=== PATIENT | female | born 1970 | race Caucasian/White ===

== ENCOUNTER 2018-03-06 11:09 | Inpatient (IN) | payer MEDICAID, MEDICARE ==
[2018-03-06] MEDS ORDERED: Sodium Chloride 0.9% 1,000 ML IV ONE (11:23)
--- NOTE | 2018-03-06 11:30 | ED Physician Chart ---
ED Chief Complaint/HPI - Patient Information Date Seen:: 03/06/18 Time Seen:: 11:15 Chief Complaint:: Dizziness History of Present Illness:: onset x 3 hours [employer] of weakness, dizziness, Left E/A, vertigo, N/V x 3; pt denies trauma, H/As, LOC, ALOC, AMS, visual or gait changes, tinnitus, hearing loss, S/T, neck pain, C/P, SOB, Abd. Pain, A/D/C, fever, chills, or urinary s/s Allergies:: Allergies Allergy/AdvReac Type Severity Reaction Status Date / Time cephalexin [From Keflex] Allergy Verified 03/06/18 11:18 hydromorphone [From Dilaudid] Allergy Verified 03/06/18 11:18 Vitals:: Vital Signs - 8 hr 03/06/18 11:18 Temp 97.9 F HR 71 RR 17 BP 152/90 O2 Sat % 98 Historian:: Patient, Family Member Review:: Nurse's Note Reviewed ED Review of Systems - Review of Systems General/Constitutional: No fever, No chills, No weight loss, Weakness, No diaphoresis, No edema, No loss of appetite Skin: No skin lesions, No rash, No bruising Head: No headache, No light-headedness Eyes: No loss of vision, No pain, No diplopia ENT: Earache, No nasal drainage, No sore throat, No tinnitus Neck: No neck pain, No swelling, No thyromegaly, No stiffness, No mass noted Cardio Vascular: No chest pain, No palpitations, No PND, No orthopnea, No edema Pulmonary: No SOB, No cough, No sputum, No wheezing GI: Nausea, Vomiting, Diarrhea, No pain, No melena, No hematochezia, No constipation, No hematemesis G/U: No dysuria, No frequency, No hematuria, No nacturia Designer Writer: No vaginal discharge, No abnormal vaginal bleed, No contraction Musculoskeletal: No bone or joint pain, No back pain, No muscle pain Endocrine: No polyuria, No polydipsia Psychiatric: No prior psych history, No depression, No anxiety, No suicidal ideation, No homicidal ideation, No auditory hallucination, No visual hallucination Hematopoietic: No bruising, No lymphadenopathy Allergic/Immuno: No urticaria, No angioedema Neurological: No syncope, No focal symptoms, Weakness, No paresthesia, No headache, No seizure, Dizziness, No confusion, Vertigo ED Past Medical History - Past Medical History Obtainable: Yes Past Medical History: No significant medical hx Family History: HTN Social History: Non Smoker, No Alcohol, No Drug Use, Single Surgical History: Hysterectomy Psychiatricy History: None Medication: Reviewed Family Medical History - Family Member Father Ethnicity: Non- Living Status: Hx Family Cancer: No Hx Family Coronary Artery Disease: No Hx Family Congestive Heart Failure: Yes Hx Family Hypertension: No Hx Family Stroke: No Hx Family Diabetes: No Hx Family Seizures: No Hx Family Dementia: No Hx Family AIDS: No Hx Family HIV: No Hx Family COPD: No Hx Family Hepatitis: No Hx Family Psychiatric Problems: No Hx Family Tuberculosis: No ED Physical Exam - Physical Examination General/Constitutional: Awake, Well-developed, well-nourished, Alert, No distress, GCS 15, Non-toxic appearing, Ambulatory Head: Atraumatic Eyes: Lids, conjuctiva normal, PERRL, EOMI Skin: Nl inspection, No rash, No skin lesions, No ecchymosis, Well hydrated, No lymphadenopathy ENMT: External ears, nose nl, Nasal exam nl, Lips, teeth, gums nl, Oropharynx nl , Tonsils nl Other ENMT comments:: Left Ear: TM: Dull and Injected; no FBs Neck: Nontender, Full ROM w/o pain, No JVD, No nuchal rigidity, No bruit, No mass, No stridor Respiratory: Nl effort/Exclusion, Clear to Auscultation, No Wheeze/Rhonchi/Rales Cardio Vascular: RRR, No murmur, gallop, rubs, NL S1 S2, Carotid/Femoral/Distal pulses equal bilaterally GI: No tenderness/rebounding/guarding, No organomegaly, No hernia, Normal BS's, Nondistended, No mass/bruits, No McBurney tenderness : No CVA tenderness Extremities: No tenderness or effusion, Full ROM, normal strength in all extremities, No edema, Normal digits & nails Neuro/Psych: Alert/oriented, DTR's symmetric, Normal sensory exam, Normal motor strength, Judgement/insight normal, Mood normal, Normal gait, No focal deficits Misc: Normal back, No paraspinal tenderness ED Labs/Radiology/EKG Results - Lab Results Comments:: WBC: 11.6; Na+: 128 - Radiology Results Comments:: NAD - EKG Interpretations EKG Time:: 11:27 Rate & Rhythm: 73; NSR Comments:: non-specific st-t changes ED Septic Shock - . Is Septic Shock (SBP<90, OR Lactate>4 mmol\L) present?: No - <6hrs of presentation: Vital Signs: Vital Signs - 8 hr 03/06/18 11:18 Temp 97.9 F HR 71 RR 17 BP 152/90 O2 Sat % 98 ED Reassessment (Disposition) - Reassessment Reassessment Condition:: Improved - Diagnosis Diagnosis:: Dx: Left Otitis Media; Weakness; Dizziness; Vertigo; N/V/D; AGE; Dehydration; Leukocytosis; Hyponatremia - Aftercare/Follow up Instructions Aftercare/Follow-Up Instructions:: Counseled pt regarding lab results/diagnosis & need follow up, Counseled pt & family regarding lab results/diagnosis & need follow up - Patient Disposition Discharge/Transfer:: Acute Care w/in this hosp Accepting Physician:: Dr. Mckenna Time Called:: 1300 Time Responded:: 13:00 Admitted to:: Telemetry Spoke to:: Dr. Mckenna Admitting Medical Physician:: Dr. Mckenna Condition at Disposition:: Stable, Improved
[2018-03-06 11:43] LABS: % BASOPHILS 1.5 % (0.0-2.0); % EOSINOPHILS 0.2 % (0.0-5.0); % LYMPHOCYTES 8.5 % (20.0-50.0); % MONOCYTES 1.1 % (2.0-10.0); % NEUTROPHILS 88.7 % (40.0-80.0); BASOPHILE ABSOLUTE 0.2 Th/cumm (0-0.2); HEMATOCRIT 42.5 % (41.0-60); HEMOGLOBIN 14.4 gm/dL (12-16); MEAN CELL VOLUME 92.8 fl (81-100); MEAN CORPUSCULAR HEMOGLOBIN 31.4 pg (27.0-31.0); MEAN CORPUSCULAR HGB CONC 33.9 pg (28.0-36.0); MEAN PLATELET VOLUME 7.3 fl; MONOCYTE ABSOLUTE 0.1 Th/cmm (0.3-1.0); NEUTROPHILE ABSOLUTE 10.3 Th/cmm (1.8-8.0); PLATELET COUNT 339 Th/cmm (150-400); RED BLOOD COUNT 4.58 Mil/cmm (3.80-5.10); RED CELL DISTRIBUTION WIDTH 12.5 % (11.5-20.0); WHITE BLOOD COUNT 11.6 Th/cmm (4.8-10.8)
[2018-03-06 12:00] LABS: INR 0.89 (0.5-1.4); PROTHROMBIN TIME (TEST) 9.1 SECONDS (9.5-11.5)
[2018-03-06 12:01] LABS: ALB/GLOB RATIO 1.7 (1.0-1.8); ALKALINE PHOSPHATASE 69 U/L (34-104); ANION GAP 12.8 (7.0-16.0); BILIRUBIN,TOTAL 0.6 mg/dL (0.3-1.0); BUN - UREA NITROGEN 12 mg/dL (7-25); CALCIUM SERUM 9.6 mg/dL (8.6-10.3); CARBON DIOXIDE 20.8 mEq/L (21.0-31.0); CHLORIDE 98 mEq/L (98-107); CHOLESTEROL 229 mg/dL (<200); CREATININE - SERUM 0.5 mg/dL (0.6-1.2); CREATININE KINASE 56 U/L (30-223); GFR AFRICAN-AMERICAN > 60.0 ml/min (>90); GFR NON AFRICAN-AMERICAN > 60.0 ml/min; GLUCOSE 113 mg/dL (70-105); HDL -HIGH DENSITY LIPOPROTEIN 53 mg/dL (23-92); POTASSIUM SERUM 3.6 mEq/L (3.5-5.1); SGOT 21 U/L (13-39); SGPT/ALT 39 U/L (7-52); SODIUM SERUM 128 mEq/L (136-145); TRIGLYCERIDES 87 mg/dL (<150)
[2018-03-06 12:02] LABS: AMYLASE SERUM 33 U/L (29-103); LIPASE 30 U/L (11-82)
--- NOTE | 2018-03-06 14:56 | Diagnostic Imaging Report ---
Head CT without intravenous contrast Indication: Trauma, nausea and vomiting Comparison: None Technique: Axial images were obtained from the vertex to the skull base without IV contrast. Coronal reconstructions were made. Total DLP: 721, [id number] FINDINGS: Images of the brain obtained without contrast demonstrate no acute hemorrhage. No mass lesions identified. The ventricles and basal cisterns are patent. The ko-white matter differentiation is preserved. There is no mass effect or midline shift. No skull fractures identified. There is almost complete opacification of left sphenoid sinus with areas of high density. IMPRESSION:. No acute intracranial abnormality. Left sphenoid sinusitis with almost complete opacification areas of high density which may be due to secretions or possibly tiny amount of hemosinus. Please correlate with clinical findings.
[2018-03-06] MEDS ORDERED: [UNRECOGNIZED DRUG - OTHER] OT SCH (20:40)
[2018-03-07 01:27] VITALS: BP 128/81
[2018-03-07 05:13] LABS: % BASOPHILS 0.5 % (0.0-2.0); % EOSINOPHILS 1.2 % (0.0-5.0); % MONOCYTES 6.7 % (2.0-10.0); % NEUTROPHILS 68.6 % (40.0-80.0); EOSINOPHILE ABSOLUTE 0.1 Th/cmm (0.1-0.4); HEMATOCRIT 39.4 % (41.0-60); HEMOGLOBIN 13.5 gm/dL (12-16); MEAN CELL VOLUME 92.8 fl (81-100); MEAN CORPUSCULAR HEMOGLOBIN 31.8 pg (27.0-31.0); MEAN CORPUSCULAR HGB CONC 34.3 pg (28.0-36.0); MEAN PLATELET VOLUME 7.4 fl; MONOCYTE ABSOLUTE 0.6 Th/cmm (0.3-1.0); NEUTROPHILE ABSOLUTE 5.8 Th/cmm (1.8-8.0); PLATELET COUNT 303 Th/cmm (150-400); RED BLOOD COUNT 4.25 Mil/cmm (3.80-5.10); RED CELL DISTRIBUTION WIDTH 12.6 % (11.5-20.0)
[2018-03-07 05:22] LABS: WHITE BLOOD COUNT 8.5 Th/cmm (4.8-10.8)
[2018-03-07 05:26] LABS: ALB/GLOB RATIO 1.6 (1.0-1.8); ALKALINE PHOSPHATASE 64 U/L (34-104); ANION GAP 10.1 (7.0-16.0); BILIRUBIN,TOTAL 0.4 mg/dL (0.3-1.0); BUN - UREA NITROGEN 12 mg/dL (7-25); CALCIUM SERUM 8.9 mg/dL (8.6-10.3); CARBON DIOXIDE 23.6 mEq/L (21.0-31.0); CHLORIDE 106 mEq/L (98-107); CHOLESTEROL 194 mg/dL (<200); CREATININE - SERUM 0.6 mg/dL (0.6-1.2); GFR AFRICAN-AMERICAN > 60.0 ml/min (>90); GFR NON AFRICAN-AMERICAN > 60.0 ml/min; GLUCOSE 107 mg/dL (70-105); HDL -HIGH DENSITY LIPOPROTEIN 42 mg/dL (23-92); POTASSIUM SERUM 3.7 mEq/L (3.5-5.1); SGOT 15 U/L (13-39); SGPT/ALT 31 U/L (7-52); SODIUM SERUM 136 mEq/L (136-145); TOTAL PROTEIN,SERUM 6.5 gm/dL (6.0-8.3); TRIGLYCERIDES 117 mg/dL (<150)
[2018-03-07] MEDS ORDERED: Aspirin 81mg Chewable Tab PO SCH (09:00)
[2018-03-07] MEDS ORDERED: Levofloxacin 500mg/100mL 500 MG/100 ML BAG IV SCH (10:00)
[2018-03-07] MEDS ORDERED: Cortisporin Otic Soln 10mL Bottle LEFT EAR SCH (12:00)
--- NOTE | 2018-03-07 12:15 | History & Physical ---
ADMIT DATE: 03/06/2018 CHIEF COMPLAINT: Dizziness and left ear pain. HISTORY OF PRESENT ILLNESS: This is a 47-year-old lady with no major medical problems except for seasonal allergies, who was in her usual state of health until yesterday morning when she woke up with severe left ear pain, dizziness associated with a couple episodes of nausea and vomiting. She apparently was camping on the weekend and while over there started experiencing some right-sided teary eye and apparently took loratadine with mild improvement. The next day, that's when she felt the dizziness, also headaches, mostly frontal and 2 episodes of nausea, vomiting as noted above-her symptoms got worse while at work. She does as mentioned above have history of seasonal allergies, but has never experienced vertigo. She presented to the Emergency Room, where pertinent findings include a white count of 11.6 and sodium of 128. Also, per ER staff, she did have swelling, pain and redness on her right ear. The patient has been admitted to the medical floor for further management and care. Since admission, she reports improvement of her symptoms, no longer feeling dizzy and her ear pain has improved. Her white count also has gone down to 8.5. PAST MEDICAL HISTORY: As noted above. PAST SURGICAL HISTORY: She had a some years ago. FAMILY HISTORY: Her father in his 50 secondary to hypertensive heart disease. SOCIAL HISTORY: No tobacco. Social alcohol. No illicit drug usage. ALLERGIES: ALLERGIC TO KEFLEX AND HYDROMORPHONE. OUTPATIENT MEDICATIONS: Loratadine as needed. REVIEW OF SYSTEMS: CONSTITUTIONAL: She denies any fever, chills, any chronic weakness or tiredness. HEAD AND NECK: Please refer to the HPI. CARDIAC: No chest pain or palpitations reported. PULMONARY: No cough, phlegm production. GASTROINTESTINAL: Nausea, vomiting secondary to the dizzy spells, but denies any abdominal pain, any diarrhea, any constipation, any unusual p.o. intake or recent traveling outside the country. GENITOURINARY: No bladder habit changes. NEUROLOGIC: Please refer to the HPI. PHYSICAL EXAMINATION: VITAL SIGNS: Temperature 96.9, pulse 72, respirations 18, BP 121/79, satting 94-97% on room air. GENERAL: Well developed, well nourished, not in acute distress. HEAD AND NECK: Normocephalic, atraumatic. Pupils reactive to light. Extraocular movements are intact. Oropharynx moist and clear. There is no noticeable facial tenderness to palpation. The eyes appear to be within normal limits with no conjunctivitis or noticeable erythema. CARDIAC: Regular rate and rhythm without any murmurs. LUNGS: Clear to auscultation bilaterally. ABDOMEN: Soft, supple, nontender, nondistended, normoactive bowel sounds. EXTREMITIES: Lower extremities: No pedal edema. NEURO: Cranial nerves 2-12 are within normal limits. The overall exam is nonfocal. She is able to move all 4 extremities with equal force and strength. LABORATORY DATA: For pertinent findings, please refer to the HPI. DIAGNOSTIC DATA: There was a head CT done on admission showing no acute intracranial abnormality. There was a left sphenoid sinusitis with almost complete opacification which may be due to secretions or possibly tiny amount of hemosinus. EKG: Sinus rhythm at a rate of 73. ASSESSMENT: 1. Dizziness, likely secondary to vertigo, which most likely is explained within the context of possible left-sided otitis media in conjunction with left- sided sphenoid sinusitis. Neuro vs cardiac etiology less likely. 2. Left sphenoid sinusitis. 3. Left-sided otitis media. PLAN: The patient has been admitted to the medical floor where she has been placed on IV fluids, IV antibiotics, supportive care including meclizine and Zofran. I also have started her on polymyxin B--2 drops in her left ear. Given that she reports a noticeable improvement of her symptoms, the patient will be discharged with p.o. antibiotics as well as eardrop antibiotics. We will stop further neuro workup at this time. I have discussed the case with the patient and the dependency case manager and instructed her to follow up with primary care doctor within the next couple of days. JOB# [id number] [facility]
--- NOTE | 2018-03-07 17:45 | Discharge Summary ---
DATE OF DISCHARGE: 03/07/2018 ADMITTING DIAGNOSES: 1. Dizziness, lightheadedness, rule out transient ischemic attack versus cerebrovascular accident versus vertigo. 2. Left otitis media. 3. Leukocytosis. 4. Hyponatremia. SECONDARY DIAGNOSES: History of seasonal allergies. DISCHARGE DIAGNOSES: 1. Likely vertigo secondary to left otitis media and left sphenoid sinusitis. 2. Left sphenoid sinusitis. 3. Left otitis media. CONSULTANTS: No consultants were used during this admission. DISCHARGE MEDICATIONS: Levaquin 500 mg every day x7 days and corticosporin otic drops 4 drops into the left ear q.i.d. x 10 days, Claritin 10 mg p.r.n., meclizine 25 mg p.o. q. 4 hours p.r.n. for dyspnea. MAJOR PROCEDURES: Head CT done on 03/06/2018 showed no acute intracranial abnormalities, left sphenoid sinusitis. BRIEF HOSPITAL COURSE: This is a 47-year-old female who started having symptoms of lightheadedness and dizziness associated with nausea and vomiting about 3 hours prior to admission. The patient apparently had gone camping the day before and started having some symptoms of teary eyes consistent with her previous history of seasonal allergies; however, on the day of admission, while at work, she complained of severe dizziness, headaches with 2 episodes of nausea and vomiting. She was transferred to the ED where she was noted to have a white count of 11.6 and sodium level of [address] findings -- please see above. The patient was admitted to the medical floor to rule out TIA versus CVA. She was placed on IV fluids, IV antibiotics and other supportive care including Zofran. By hospital day #1, her white count had improved to a level of 8.5 and her sodium had improved to a level of 136. She underwent a 2D echo with official results pending, but the patient reported improvement of her symptoms including no longer feeling dizzy and no longer feeling nauseated. Given her improvement, no further cardiac or neurologic work-up was done. CONDITION ON DISCHARGE: Stable. DISPOSITION: I instructed the patient to follow with her primary care doctor within 2-3 days. JOB# [id number] [facility]
== END 2018-03-07 14:20 | disposition home or self-care (01) | DRG 153 ==
LOC: ER 11:09 → TELE 16:30 → ER 16:55 → TELE 20:20
PROVIDERS: ADMIT Internal Medicine; ATTEND Internal Medicine
DX: H66.92 Otitis media, unspecified, left ear (principal); E87.1 Hypo-osmolality and hyponatremia; D72.829 Elevated white blood cell count, unspecified; E86.0 Dehydration; J32.3 Chronic sphenoidal sinusitis; Z88.1 Allergy status to other antibiotic agents; Z90.710 Acquired absence of both cervix and uterus; Z82.49 Family history of ischemic heart disease and other diseases of the circulatory system
CPT/HCPCS: 36415-UA; 70450-TC; 80053-TC; 80061-TC; 82150-TC; 82550-TC; 82948-90; 83690-TC; 83880-TC; 84443-TC; 84484-TC; 84703-TC; 85025-TC; 85610-TC; 93005; 96375; J1956; J2405; J3370; J7030; J7040; Z7610